=== PATIENT | female | born 1990 | race Caucasian/White ===

== ENCOUNTER 2018-08-22 10:34 | Emergency (ER) | payer MEDICAID ==
[~2018-08-22] VITALS: Ht 160 cm; Wt 59.0 kg
[2018-08-22] MEDS ORDERED: ACETAMINOPHEN WITH CODEINE 300/30MG TABLET PO ONE (11:30)
[2018-08-22] MEDS ORDERED: DEXAMETHASONE 10 MG/ML VIAL IM ONE (11:30)
[2018-08-22 12:50] VITALS: BP 106/54
== END 2018-08-22 12:50 | disposition home or self-care (01) ==
LOC: ER 10:34
DX: M54.32 Sciatica, left side (principal)
CPT/HCPCS: 96372; 99283; J1100